=== PATIENT | female | born 1950 | race Caucasian/White ===

== ENCOUNTER 2019-06-02 07:00 | Day surgery (SDC) | payer OTHER ==
[~2019-06-02] VITALS: Ht 152.4 cm; Wt 117.5 kg
[~2019-06-02 07:00] MED LIST: ALLOPURINOL300 MG PO; ATORVASTATIN CA20 MG PO; DILTIAZEM 24HR240 MG PO; GABAPENTIN100 MG PO; LANTUS SOL100 UNIT/1 SUBCUTANEO; LOSARTAN POTAS100 MG PO; SYNTHROID100 MCG PO
[2019-06-03] MEDS ORDERED: INTESTINEX680 M1 PO (07:57)
[2019-06-03] MEDS ORDERED: ULTRACET PO (07:57)
== END 2019-06-03 08:00 | disposition home or self-care (01) ==
LOC: CIR.AMB 07:00 → EDSTATUS 10:30 → SURH 10:30 → O/R 12:01 → MEDI 13:33 → SURH 13:33 → CIR.AMB 06-03 08:00 → MEDI 06-03 08:13
DX: D3A.026 Benign carcinoid tumor of the rectum (principal)